=== PATIENT | female | born 1980 | race African-American/Black ===

== ENCOUNTER 2018-06-11 14:59 | Emergency (ER) | payer MEDICAID ==
[~2018-06-11] VITALS: Ht 175.3 cm; Wt 75.0 kg
[~2018-06-11 14:59] MED LIST: ACET-2178 PO; LEVO500T2 PO; METR500T PO
[2018-06-11] MEDS ORDERED: DIPHENHYDRAMINE 25MG CAPSULE PO ONE (17:45)
[2018-06-11] MEDS ORDERED: HYDROCODONE/ACETAMINOPHEN 5/325MG TABLET PO ONE (17:45)
[2018-06-11 17:56] LABS: HEMATOCRIT. 30.1 % (36.0-48.0); MEAN CORPUSCULAR HEMOGLOBIN 33.7 pg (28.0-32.0); MEAN CORPUSCULAR VOLUME 101.5 fL (81.0-99.0); MEAN PLATELET VOLUME 9.7 fl (7.4-10.4); PLATELET 103 x1000/uL (130-400); RED BLOOD CELL COUNT 2.97 mill/uL (4.2-5.4); RED CELL DISTRIBUTION WIDTH 16.9 % (11.6-14.6)
[2018-06-11 18:00] LABS: CHLORIDE 103 mEq/L (98-107)
[2018-06-11 18:03] LABS: INR 1.2; PROTHROMBIN TIME 12.6 sec (9.4-11.6)
[2018-06-11 19:20] LABS: PLATELET ESTIMATE DECREASED
[2018-06-11 19:47] LABS: CLARITY URINE CLEAR (CLEAR); COLOR URINE YELLOW (YELLOW); KETONES URINE NEGATIVE (NEGATIVE); LEUKOCYTE ESTERASE URINE NEGATIVE (NEGATIVE); NITRITE URINE NEGATIVE (NEGATIVE); OCCULT BLOOD URINE NEGATIVE (NEGATIVE); PH URINE 5.5 (4.5-8.0); PROTEIN URINE NEGATIVE (NEGATIVE); SPECIFIC GRAVITY URINE 1.007 (1.005-1.030); UROBILINOGEN URINE 0.2 E.U./dL (0.2-1.0)
[2018-06-11 20:14] LABS: *AMPHETAMINES SCREEN URINE NEGATIVE (NEGATIVE); *BARBITURATES SCREEN URINE NEGATIVE (NEGATIVE); *BENZODIAZEPINES SCREEN URINE NEGATIVE (NEGATIVE)
[2018-06-11 20:15] LABS: *COCAINE SCREEN URINE NEGATIVE (NEGATIVE); METHADONE URINE SCREEN NEGATIVE (NEGATIVE); PHENCYCLIDINE URINE SCREEN NEGATIVE (NEGATIVE)
[2018-06-11 20:25] LABS: CANNABINOID URINE SCREEN PRESUMTIVE POSITIVE (NEGATIVE); OPIATES URINE SCREEN PRESUMTIVE POSITIVE (NEGATIVE)
[2018-06-11] MEDS ORDERED: POTASSIUM CHLORIDE 20MEQ TABLET SR PO NR (23:30)
[2018-06-11] MEDS ORDERED: POTASSIUM CHLORIDE 20MEQ TABLET SR PO SCH (23:30)
[2018-06-12 00:35] VITALS: BP 127/75
[2018-06-12] MEDS ORDERED: SODIUM CHLORIDE 0.9% 500 ML IV ONE (00:45)
[2018-06-12] MEDS ORDERED: MORPHINE SULFATE 2 MG/ML CPJ (NOT FOR IM USE) IV ONE (00:45)
== END 2018-06-12 00:45 | disposition left against medical advice (07) ==
LOC: ER 14:59 → CANBEDREQ 06-12 02:04
DX: K85.90 Acute pancreatitis without necrosis or infection, unspecified (principal); R07.89 Other chest pain; E86.0 Dehydration; M79.1 Myalgia; R74.0 Nonspecific elevation of levels of transaminase and lactic acid dehydrogenase [LDH]; E87.6 Hypokalemia; E88.09 Other disorders of plasma-protein metabolism, not elsewhere classified; D53.9 Nutritional anemia, unspecified; K21.9 Gastro-esophageal reflux disease without esophagitis; R73.9 Hyperglycemia, unspecified; F12.10 Cannabis abuse, uncomplicated; F17.200 Nicotine dependence, unspecified, uncomplicated; M19.90 Unspecified osteoarthritis, unspecified site; R10.815 Periumbilic abdominal tenderness; Z88.6 Allergy status to analgesic agent; Z98.51 Tubal ligation status
CPT/HCPCS: 36415; 71250; 80053; 80305; 81003; 83036; 83880; 84484; 85025; 85610; 93005; 99285; J7040; Z7610; Q0163

== ENCOUNTER 2021-09-30 17:11 | Inpatient (IN) | payer MEDICAID, OTHER ==
[~2021-09-30] VITALS: Ht 175.3 cm; Wt 73.0 kg
[~2021-09-30 17:11] MED LIST changes: -ACET-2178 PO; +NAP5EC MT; +TOPUD PO
[2021-09-30] MEDS ORDERED: KETOROLAC 30MG/ML VIAL IV STA (18:24)
[2021-09-30] MEDS ORDERED: ONDANSETRON HCL 4MG/2ML INJ IV STA (18:24)
[2021-09-30] MEDS ORDERED: FAMOTIDINE 20MG/2ML VIAL IV ONE (18:30)
[2021-09-30 18:40] LABS: BASOPHILS % 0.3 % (0.0-2.0); HEMATOCRIT. 40.1 % (36.0-48.0); HEMOGLOBIN. 13.4 g/dL (12.0-16.0); LYMPHOCYTES % 11.6 % (20.0-50.0); MEAN CORPUSCULAR HEMOGLOBIN 33.8 pg (28.0-32.0); MEAN CORPUSCULAR VOLUME 101.5 fL (81.0-99.0); MEAN PLATELET VOLUME 8.5 fl (7.4-10.4); MONOCYTES % 4.7 % (2.0-8.0); NEUTROPHILS % 83.4 % (40.0-76.0); PLATELET 158 x1000/uL (130-400); RED BLOOD CELL COUNT 3.96 mill/uL (4.2-5.4); RED CELL DISTRIBUTION WIDTH 16.6 % (11.6-14.6)
[2021-09-30 18:43] LABS: CHLORIDE 99 mEq/L (98-107)
[2021-09-30] MEDS ORDERED: TRAMADOL 50MG TABLET PO ONE (19:00)
[2021-09-30 19:02] LABS: INR 1.1; PROTHROMBIN TIME 11.3 sec (9.6-11.0)
[2021-09-30] MEDS ORDERED: MORPHINE SULFATE 4 MG/ML CPJ (NOT FOR IM USE) IV ONE (19:45)
[2021-09-30] MEDS ORDERED: KCL 20MEQ/100ML PREMIX 100 ML IV NR (20:15)
[2021-09-30] MEDS ORDERED: IOHEXOL-300 100 ML BOTTLE ONE (21:37)
[2021-09-30] MEDS: MORPHINE SULFATE 2 MG/ML CPJ (NOT FOR IM USE) IV PRN (23:09)
[2021-10-01] MEDS: MORPHINE SULFATE 2 MG/ML CPJ (NOT FOR IM USE) IV PRN ×5 (02:18→20:42)
[2021-10-01] MEDS ORDERED: KETOROLAC 30MG/ML VIAL IV PRN (08:15)
[2021-10-01] MEDS ORDERED: ONDANSETRON HCL 4MG/2ML INJ IV PRN (08:15)
[2021-10-01] MEDS ORDERED: ACETAMINOPHEN 325MG TABLET PO PRN (08:15)
[2021-10-01] MEDS ORDERED: NALOXONE HCL 0.4MG/ML VIAL IV PRN (09:15)
[2021-10-01] MEDS: FOLIC ACID 1 MG, THIAMINE HCL 100 MG in DEXTROSE 5% WATER 1,000 ML IV SCH (11:00)
[2021-10-01] MEDS: FAMOTIDINE 20MG/2ML VIAL IV SCH ×2 (12:33→21:00)
[2021-10-01] MEDS: MULTIVITAMINS,THER W-MINERALS TABLET PO SCH (12:51)
[2021-10-01 14:09] LABS: CLARITY URINE CLOUDY (CLEAR); COLOR URINE ORANGE (YELLOW); KETONES URINE NEGATIVE (NEGATIVE); LEUKOCYTE ESTERASE URINE 1+ (NEGATIVE); NITRITE URINE POSITIVE (NEGATIVE); OCCULT BLOOD URINE NEGATIVE (NEGATIVE); PROTEIN URINE 1+ (NEGATIVE); SPECIFIC GRAVITY URINE 1.023 (1.005-1.030); UROBILINOGEN URINE 0.2 E.U./dL (0.2-1.0)
[2021-10-01 15:01] LABS: *BENZODIAZEPINES SCREEN URINE NEGATIVE (NEGATIVE); METHADONE URINE SCREEN NEGATIVE (NEGATIVE); PHENCYCLIDINE URINE SCREEN NEGATIVE (NEGATIVE)
[2021-10-01 15:02] LABS: *AMPHETAMINES SCREEN URINE NEGATIVE (NEGATIVE); *BARBITURATES SCREEN URINE NEGATIVE (NEGATIVE)
[2021-10-01 15:04] LABS: *COCAINE SCREEN URINE NEGATIVE (NEGATIVE)
[2021-10-01 15:13] LABS: CANNABINOID URINE SCREEN PRESUMTIVE POSITIVE (NEGATIVE); OPIATES URINE SCREEN PRESUMTIVE POSITIVE (NEGATIVE)
[2021-10-01] MEDS: DEXT 5%/0.45% NACL KCL 20MEQ/L 1,000 ML IV SCH (22:21)
[2021-10-01 23:36] VITALS: BP 143/89
[2021-10-01 23:40] VITALS: BP 143/89
[2021-10-02] MEDS: MORPHINE SULFATE 2 MG/ML CPJ (NOT FOR IM USE) IV PRN ×5 (00:20→22:11)
[2021-10-02] MEDS ORDERED: GABA800T97 PO (01:51)
[2021-10-02 04:00] VITALS: BP 125/83
[2021-10-02] MEDS: DEXT 5%/0.45% NACL KCL 20MEQ/L 1,000 ML IV SCH ×3 (06:13→21:59)
[2021-10-02 06:40] LABS: CHLORIDE 99 mEq/L (98-107)
[2021-10-02 06:49] LABS: BASOPHILS % 0.2 % (0.0-2.0); EOSINOPHILS % 0.8 % (0.0-5.0); HEMATOCRIT. 37.4 % (36.0-48.0); HEMOGLOBIN. 12.6 g/dL (12.0-16.0); LYMPHOCYTES % 16.6 % (20.0-50.0); MEAN CORPUSCULAR HEMOGLOBIN 34.1 pg (28.0-32.0); MEAN CORPUSCULAR VOLUME 100.9 fL (81.0-99.0); MEAN PLATELET VOLUME 8.3 fl (7.4-10.4); MONOCYTES % 8.1 % (2.0-8.0); NEUTROPHILS % 74.3 % (40.0-76.0); PLATELET 160 x1000/uL (130-400); RED BLOOD CELL COUNT 3.71 mill/uL (4.2-5.4); RED CELL DISTRIBUTION WIDTH 16.5 % (11.6-14.6)
[2021-10-02 06:59] LABS: AMYLASE 440 IU/L (25-115)
[2021-10-02] MEDS ORDERED: POTASSIUM CHLORIDE 20MEQ TABLET SR PO SCH (07:45)
[2021-10-02 08:00] VITALS: BP 141/89
[2021-10-02] MEDS: MULTIVITAMINS,THER W-MINERALS TABLET PO SCH (09:23)
[2021-10-02] MEDS: FAMOTIDINE 20MG/2ML VIAL IV SCH ×3 (09:23→21:59)
[2021-10-02] MEDS: FOLIC ACID 1 MG, THIAMINE HCL 100 MG in DEXTROSE 5% WATER 1,000 ML IV SCH (10:32)
[2021-10-02] MEDS ORDERED: LIDOCAINE HCL 1% 30ML VIAL (10MG/ML) ONE (11:16)
[2021-10-02] MEDS ORDERED: SKIN ADHESIVE 0.7 GM EA TOP ONE (11:16)
[2021-10-02] MEDS ORDERED: BUPIVACAINE HCL/PF 0.5% (5MG/ML) 10ML ONE (11:17)
[2021-10-02] MEDS ORDERED: POLYMYXIN B SULFATE 500000 UNITS/VIAL ONE (11:17)
[2021-10-02 12:00] VITALS: BP 125/94
[2021-10-02 14:24] LABS: UCG SCREEN NEGATIVE
[2021-10-02 15:33] LABS: CHLORIDE 102 mEq/L (98-107)
[2021-10-02 15:35] LABS: AMYLASE 320 IU/L (25-115)
[2021-10-02 16:00] VITALS: BP 127/57
[2021-10-02] MEDS: CEFTRIAXONE 1,000 MG in DEXTROSE 5% WATER 50 ML IV SCH (16:37)
[2021-10-02] MEDS ORDERED: PROPOFOL 200MG/20ML VIAL IV ONE (17:50)
[2021-10-02] MEDS ORDERED: ROCURONIUM BROMIDE 10MG/ML VIAL 5ML IV ONE (18:04)
[2021-10-02] MEDS ORDERED: MIDAZOLAM HCL 2 MG/2 ML VIAL ONE (18:07)
[2021-10-02] MEDS ORDERED: FENTANYL CITRATE/PF 50MCG/ML 2ML VIAL ONE ×2 (18:09→18:57)
[2021-10-02] MEDS ORDERED: NEOSTIGMINE METHYLSULFATE 1MG/ML 10 ML VIAL ONE (18:22)
[2021-10-02] MEDS ORDERED: GLYCOPYRROLATE 0.2 MG/ML 2ML VIAL ONE (18:25)
[2021-10-02] MEDS ORDERED: FENTANYL CITRATE/PF 50MCG/ML 2ML VIAL IV PRN (19:30)
[2021-10-02] MEDS ORDERED: ONDANSETRON HCL 4MG/2ML INJ IV PRN (19:30)
[2021-10-02 21:10] VITALS: BP 123/88
[2021-10-03] VITALS: BP 119/92
[2021-10-03 04:00] VITALS: BP 137/90
[2021-10-03] MEDS: MORPHINE SULFATE 2 MG/ML CPJ (NOT FOR IM USE) IV PRN ×4 (04:08→20:06)
[2021-10-03] MEDS: DEXT 5%/0.45% NACL KCL 20MEQ/L 1,000 ML IV SCH ×3 (06:18→20:06)
[2021-10-03 08:00] VITALS: BP 145/109
[2021-10-03] MEDS: FAMOTIDINE 20MG/2ML VIAL IV SCH ×2 (09:00→20:07)
[2021-10-03] MEDS: MULTIVITAMINS,THER W-MINERALS TABLET PO SCH (09:47)
[2021-10-03] MEDS: FOLIC ACID 1 MG, THIAMINE HCL 100 MG in DEXTROSE 5% WATER 1,000 ML IV SCH (09:47)
[2021-10-03 12:00] VITALS: BP 139/90
[2021-10-03] MEDS ORDERED: LEVO500T89 MT (12:39)
[2021-10-03] MEDS ORDERED: POTASSIUM CHLORIDE 20MEQ TABLET SR PO NR (12:45)
[2021-10-03] MEDS: CEFTRIAXONE 1,000 MG in DEXTROSE 5% WATER 50 ML IV SCH (15:42)
[2021-10-03 16:00] VITALS: BP 134/98
[2021-10-04] VITALS: BP 131/89
[2021-10-04] MEDS: MORPHINE SULFATE 2 MG/ML CPJ (NOT FOR IM USE) IV PRN ×2 (00:26→03:34)
[2021-10-04] MEDS: DEXT 5%/0.45% NACL KCL 20MEQ/L 1,000 ML IV SCH (04:34)
[2021-10-04 06:56] VITALS: BP 127/79
== END 2021-10-04 09:40 | disposition home or self-care (01) | DRG 263 ==
LOC: ER 17:11 → MICUSO 20:05 → 8WST 10-01 22:50
PROVIDERS: ADMIT Internal Medicine; ATTEND Internal Medicine
PROC: 0FT44ZZ Resection of Gallbladder, Percutaneous Endoscopic Approach (ICD-10-PCS; principal; 2021-10-02)
DX: K85.11 Biliary acute pancreatitis with uninfected necrosis (principal); R65.11 Systemic inflammatory response syndrome (SIRS) of non-infectious origin with acute organ dysfunction; R18.8 Other ascites; K80.20 Calculus of gallbladder without cholecystitis without obstruction; N39.0 Urinary tract infection, site not specified; M48.00 Spinal stenosis, site unspecified; E87.6 Hypokalemia; Z20.822 Contact with and (suspected) exposure to COVID-19; Y90.9 Presence of alcohol in blood, level not specified; F10.10 Alcohol abuse, uncomplicated; F17.210 Nicotine dependence, cigarettes, uncomplicated; Z88.6 Allergy status to analgesic agent; Z98.51 Tubal ligation status; Z71.6 Tobacco abuse counseling; Z71.41 Alcohol abuse counseling and surveillance of alcoholic
CPT/HCPCS: 36415; 74177; 80048; 80053; 80305; 81003; 81025; 82150; 85025; 87426; 88304; 93005; 99285; J0696; J1885; J2250; J2270; J2405; J2704; J2710; J3010; J3411; J3480; J3490; J7030; J7060; J7070; Q9967